=== PATIENT | female | born 1975 | race Caucasian/White ===

== ENCOUNTER → 2018-06-17 | Outpatient (CLI) | payer MEDICAID | END | disposition home or self-care (01) | LOC: ROC 07:28 | PROVIDERS: ATTEND Radiology Radiation Oncology | DX: G50.0 Trigeminal neuralgia (principal); D64.9 Anemia, unspecified; K21.9 Gastro-esophageal reflux disease without esophagitis; E03.9 Hypothyroidism, unspecified; M32.9 Systemic lupus erythematosus, unspecified; F32.9 Major depressive disorder, single episode, unspecified; F41.9 Anxiety disorder, unspecified; Z85.41 Personal history of malignant neoplasm of cervix uteri; Z88.0 Allergy status to penicillin; Z88.1 Allergy status to other antibiotic agents; Z87.891 Personal history of nicotine dependence | CPT/HCPCS: 99214; G0463 ==

== ENCOUNTER 2018-07-10 13:38 | Outpatient (CLI) | payer MEDICAID ==
[2018-07-10] MEDS ORDERED: GADOBUTROL 7.5 MMOL/7.5 ML PFS ONE (14:01)
== END 2018-07-10 23:59 | disposition home or self-care (01) ==
LOC: CFH 13:38
PROVIDERS: ATTEND Radiology Radiation Oncology
DX: G50.0 Trigeminal neuralgia (principal)
CPT/HCPCS: 70553; A9585

== ENCOUNTER 2018-10-24 08:04 | Outpatient (CLI) | payer MEDICAID | END 2018-10-24 23:59 | disposition home or self-care (01) | LOC: ROC 08:04 | PROVIDERS: ATTEND Radiology Radiation Oncology | DX: Z02.9 Encounter for administrative examinations, unspecified (principal) ==